=== PATIENT | male | born 2000 | race Caucasian/White ===

== ENCOUNTER 2025-01-10 15:58 | Emergency (ER) | payer MEDICAID, OTHER ==
[~2025-01-10] VITALS: Ht 198.1 cm; Wt 109.1 kg
[~2025-01-10 15:58] MED LIST: BENZ-16 PO
[2025-01-10] MEDS ORDERED: AMOX-580 PO (18:23)
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
[2025-01-10] MEDS: amox tr/potassium clavulanate 875/125mg TAB PO ONE (18:29)
[2025-01-10] MEDS: TETanus/Pertussis (Acell)/Diphther VAC/PF (Tdap-Adult) 0.5ml syringe IMVAC ONE (18:30)
[2025-01-10 18:46] VITALS: BP 158/86; PULSE 99; RESP 18; TEMP 99.6; O2SAT 99
== END 2025-01-10 18:49 | disposition home or self-care (01) ==
LOC: ER 15:58
DX: S51.852A Open bite of left forearm, initial encounter (principal); S51.851A Open bite of right forearm, initial encounter; Z59.00 Homelessness unspecified; Y04.1XXA Assault by human bite, initial encounter; Y93.89 Activity, other specified; Y92.89 Other specified places as the place of occurrence of the external cause; Y99.8 Other external cause status
CPT/HCPCS: 90471; 90715; 99283